=== PATIENT | female | born 1960 | race Caucasian/White ===

== ENCOUNTER → 2018-03-13 20:17 | Outpatient (CLI) | payer MEDICAID, SELFPAY | PROVIDERS: Family Provider Physician Assistant; PCP Physician Assistant; Visit Provider Family Medicine | DX: G47.33 Obstructive sleep apnea (adult) (pediatric) (principal) | CPT/HCPCS: 95811 ==

== ENCOUNTER → 2018-05-30 12:12 | Outpatient (CLI) | payer MEDICAID, SELFPAY ==
--- NOTE | 2018-05-30 14:16 | NEURO ---
NCS and/or EMG Patient Report Ordering Doctor: Khalif Cool DATE OF SERVICE: 05/30/18 Soila Diaz is a 58-year-old female presents for electrodiagnostic testing of the lower limbs. She reports numbness and tingling in both feet, which is progressively worsened. She reports a history of diabetes. Electrodiagnostic findings peroneal motor nerve demonstrates normal distal latency, amplitude and conduction velocity on the left side. Right common peroneal nerve demonstrates decreased amplitude and conduction velocity. Tibial conduction velocity is decreased bilaterally. Borderline prolonged right tibial and right common peroneal F-wave. Prolonged H reflex bilaterally. Absent right sural response. Absent medial plantar responses. On needle EMG, all muscles tested in the lower limbs showed no evidence. On needle EMG, all muscles tested in the lower limb showed no evidence of denervation with normal motor unit action potentials. Electrodiagnostic impression: This is an abnormal study in the lower limbs. 1. Electrodiagnostic findings demonstrate peripheral polyneuropathy, with involvement of motor and sensory nerve fibers. This may be secondary to poorly controlled diabetes. 2. No electrodiagnostic evidence is noted for lumbosacral radiculopathy. If there are any further questions, please do not hesitate to contact me
== END ==
PROVIDERS: Family Provider Physician Assistant; PCP Physician Assistant; Visit Provider Family Medicine
DX: R20.2 Paresthesia of skin (principal)
CPT/HCPCS: 95886; 95911